=== PATIENT | female | born 1985 | race Caucasian/White ===

== ENCOUNTER 2016-08-07 09:30 | Inpatient (IN) | payer MEDICAID ==
[~2016-08-07] VITALS: Ht 152.4 cm; Wt 79.4 kg
[2016-08-07] VITALS (13 sets, daily range): BP systolic 108–127; BP diastolic 75–89; PULSE 76–98; RESP 16–18; TEMP 96.8–98.2; O2SAT 97–98
[~2016-08-07 09:30] MED LIST: PREN0.01 PO; SYNT88TA PO; TAB-TAB PO
[2016-08-07 10:23] LABS: AUTOMATED NEUTROPHIL # 5.6 TH/MM3 (1.8-7.7); BASOPHIL % 0.5 % (0.0-2.0); EOSINOPHIL % 0.5 % (0.0-4.0); HEMO FLAGS DIFF FINAL; LYMPH % 21.3 % (9.0-44.0); LYMPHOCYTE # 1.7 TH/MM3 (1.0-4.8); MEAN CELL VOLUME 87.9 FL (80.0-100.0); MEAN CORPUSCULAR HEMOGLOBIN 29.4 PG (27.0-34.0); MEAN CORPUSCULAR HGB CONC 33.5 % (32.0-36.0); MONO % 6.4 % (0.0-8.0); NEUT % 71.3 % (16.0-70.0); PLATELET COUNT 197 TH/MM3 (150-450); RED BLOOD COUNT 4.09 MIL/MM3 (4.00-5.30); RED CELL DISTRIBUTION WIDTH 15.1 % (11.6-17.2); WHITE BLOOD COUNT 7.8 TH/MM3 (4.0-11.0)
[2016-08-07] MEDS: LACTATED RINGER'S 1000 ML INJ 1,000 ML IV SCH ×3 (10:30→13:10)
[2016-08-07 10:37] LABS: BACTERIA, URINE OCC /hpf; BLOOD, URINE NEG (NEG); COMMENT (UR) CULT NOT INDICATED; CULTURE IF INDICATED CULT NOT INDICATED; GLUCOSE,URINE NEG (NEG); KETONE, URINE NEG (NEG); MUCUS URINE FEW /lpf (OCC); NITRITE,URINE NEG (NEG); PH, URINE 6.5 (5.0-8.5); SQUAMOUS EPITHELIAL CELL URINE 2 /hpf (0-5); URINE COLOR YELLOW (YELLW/STRAW)
[2016-08-07] MEDS ORDERED: OXYTOCIN 10 UNIT/ML AMP ONE (11:32)
[2016-08-07] MEDS ORDERED: CLINDAMYCIN 600 MG/NS 100 ML IV SCH ×2 (11:45)
[2016-08-07] MEDS ORDERED: LACTATED RINGER'S 1000 ML IV SCH (11:45)
[2016-08-07] MEDS ORDERED: LACTATED RINGER'S 1000 ML IV ONE (11:45)
[2016-08-07] MEDS ORDERED: CITRIC ACID-SODIUM CITRATE LIQ 30 ML UDC PO SCH (11:45)
[2016-08-07] MEDS ORDERED: ONDANSETRON HCL 4 MG/2 ML VIAL ONE (13:54)
[2016-08-07] MEDS ORDERED: MORPHINE SULFATE PF 5 MG/10 ML VIAL ONE (13:54)
[2016-08-07] MEDS ORDERED: SODIUM CHLORIDE 0.9% FLUSH 5 ML FLUSH IV PRN (14:00)
[2016-08-07] MEDS ORDERED: ZOLPIDEM TARTRATE 5 MG TAB PO PRN (14:00)
[2016-08-07] MEDS ORDERED: ONDANSETRON HCL 4 MG/2 ML VIAL IV PUSH PRN (14:00)
[2016-08-07] MEDS ORDERED: OXYTOCIN 30 UNITS-500ML PREMIX 500 ML IV ONE ×2 (14:00)
[2016-08-07] MEDS ORDERED: OXYTOCIN 30 UNITS-500ML PREMIX 500 ML ONE (14:42)
[2016-08-07] MEDS: CLINDAMYCIN INJ 600 MG in SODIUM CHLORIDE 0.9% INJ 100 ML IV SCH (18:29)
[2016-08-07] MEDS ORDERED: SODIUM CHLORIDE 0.9% FLUSH 5 ML FLUSH IV SCH (21:00)
[2016-08-07] MEDS: oxyCODONE/ACETAMINOPHEN 5 MG/325 MG TAB PO PRN (21:01)
[2016-08-07] MEDS: IBUPROFEN 600 MG TAB PO PRN (21:01)
[2016-08-08] MEDS ORDERED: OXYTOCIN 30 UNITS-500ML PREMIX 500 ML IV PRN
[2016-08-08 01:00] VITALS: BP 98/65; PULSE 84; RESP 18; TEMP 98.1
[2016-08-08] MEDS: CLINDAMYCIN INJ 600 MG in SODIUM CHLORIDE 0.9% INJ 100 ML IV SCH (01:13)
[2016-08-08] MEDS: oxyCODONE/ACETAMINOPHEN 5 MG/325 MG TAB PO PRN ×4 (01:13→20:02)
[2016-08-08] MEDS: LACTATED RINGER'S 1000 ML INJ 1,000 ML IV SCH (01:14)
[2016-08-08 05:50] VITALS: BP 109/64; PULSE 82; RESP 18; TEMP 98
[2016-08-08 06:21] LABS: AUTOMATED NEUTROPHIL # 7.3 TH/MM3 (1.8-7.7); BASOPHIL % 0.1 % (0.0-2.0); EOSINOPHIL # 0.1 TH/MM3 (0-0.4); EOSINOPHIL % 0.5 % (0.0-4.0); HEMATOCRIT 29.4 % (35.0-46.0); HEMO FLAGS DIFF FINAL; LYMPH % 15.1 % (9.0-44.0); LYMPHOCYTE # 1.4 TH/MM3 (1.0-4.8); MEAN CELL VOLUME 88.6 FL (80.0-100.0); MEAN CORPUSCULAR HEMOGLOBIN 29.6 PG (27.0-34.0); MEAN CORPUSCULAR HGB CONC 33.4 % (32.0-36.0); MONO % 5.5 % (0.0-8.0); NEUT % 78.8 % (16.0-70.0); PLATELET COUNT 152 TH/MM3 (150-450); RED BLOOD COUNT 3.31 MIL/MM3 (4.00-5.30); RED CELL DISTRIBUTION WIDTH 15.3 % (11.6-17.2); WHITE BLOOD COUNT 9.2 TH/MM3 (4.0-11.0)
[2016-08-08] MEDS: LEVOTHYROXINE SODIUM 88 MCG TAB PO SCH (06:23)
[2016-08-08 08:13] VITALS: BP 101/72; PULSE 76; RESP 16; TEMP 98.5
--- NOTE | 2016-08-08 08:21 | HHI.OB ---
Subjective Post Operative Day: 1 Remarks Doing well, tolerating diet and pain is fairly well controlled. Waiting on her meds. Baby is doing well. Objective Vitals/I&O Vital Signs Date Time Temp Pulse Resp B/P Pulse Ox O2 Delivery O2 Flow Rate FiO2 08/08/16 05:50 98.0 08/08/16 05:50 82 18 109/64 08/08/16 01:00 84 18 98/65 08/08/16 01:00 98.1 08/07/16 20:45 93 127/89 08/07/16 20:45 98.0 08/07/16 18:14 18 08/07/16 17:14 17 08/07/16 16:30 98.2 95 18 08/07/16 16:30 126/87 08/07/16 15:00 97.5 08/07/16 15:00 83 16 125/87 98 08/07/16 14:45 76 16 124/82 97 08/07/16 14:36 79 16 98 08/07/16 14:36 110/79 08/07/16 14:19 97.4 08/07/16 14:15 93 16 120/75 98 08/07/16 14:10 98 16 108/88 98 08/07/16 13:55 96.8 08/07/16 13:55 85 16 114/76 97 08/07/16 11:35 98.2 08/07/16 10:00 82 119/89 Result Diagram: 08/08/16 0556 Objective Remarks GENERAL: Well-nourished, well-developed patient. CARDIOVASCULAR: Regular rate and rhythm without murmurs, gallops, or rubs. RESPIRATORY: Breath sounds equal bilaterally. No accessory muscle use. ABDOMEN/GI: Abdomen soft, non-tender, bowel sounds present. Incision: Clean, dry and intact. Fundus: Firm, non-tender at umbilicus. GENITOURINARY: Light to moderate bleeding. EXTREMITIES: No cyanosis or edema, non-tender, without signs of DVT. Medications and IVs Current Medications Medications (Trade) Dose Ordered Sig/Ofelia Route Start Time Stop Time Status Last Admin (Lr 1000 ml Inj) 1,000 ml @ 100 mls/hr Q10H IV 08/07/16 18:53 08/08/16 14:52 08/08/16 01:14 (NS Flush) 2 ml BID IV 08/07/16 21:00 (NS Flush) 2 ml UNSCH PRN IV 08/07/16 14:00 (Mylicon Chew) 80 mg QID PRN PO 08/07/16 14:00 (Motrin) 600 mg Q6H PRN PO 08/07/16 14:00 08/07/16 21:01 (Percocet 5-325 Mg) 1 tab Q4H PRN PO 08/07/16 14:00 08/08/16 01:13 (Percocet 5-325 Mg) 2 tab Q4H PRN PO 08/07/16 14:00 (Rosalinda-Colace) 2 tab Q12H PRN PO 08/07/16 14:00 (Ambien) 5 mg HS PRN PO 08/07/16 14:00 (M-M-R Ii Inj) 0.5 ml ONCE ONCE SQ 08/08/16 16:00 08/08/16 16:01 (Boostrix Inj) 0.5 ml ONCE ONCE IM 08/08/16 16:00 08/08/16 16:01 (Zofran Inj) 4 mg Q6H PRN IV PUSH 08/07/16 14:00 (Synthroid) 88 mcg DAILY@06 PO 08/08/16 06:00 08/08/16 06:23 (Stuartnatal Plus 3 ) 1 tab DAILY PO 08/08/16 09:00 Assessment/Plan Assessment and Plan POD #1 Doing well Anemia will start Fe once the pt is off the percocet Hypothryriodism continue her meds. Routine care Discharge Planning D/C home on pod #2 or #3 Kenrick Arreola MD Aug 08, 2016 08:21
--- NOTE | 2016-08-08 08:30 | MH ---
cc: MAGDALENA VIDAL DATE OF ADMISSION: 08/07/2016 HISTORY OF PRESENT ILLNESS A 31-year-old white female, para 1-0-2-1, whose last menstrual period and early ultrasound put her at 39+ weeks. She has had a previous section and she desires a repeat. She understands the risks and benefits. Also her scar is crooked and wide and we are going to try to repair that as well. PAST OB HISTORY She is para 1-0-2-1. She has a family history of fragile X. Her fragile X was negative. 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 PAST MEDICAL HISTORY 1. Hypothyroidism. 2. Hemorrhoids. PAST SURGICAL HISTORY Previous section. SOCIAL HISTORY She does not smoke. She does not drink or take drugs. FAMILY HISTORY Remarkable for high cholesterol, Alzheimer's, high blood pressure, heart disease and fragile X. ALLERGIES PENICILLIN. MEDICATIONS 1. vitamins, one p.o. q. day. 2. Occasional Anusol suppositories p.r.n. hemorrhoids. REVIEW OF SYSTEMS No headaches. No scotoma. No shortness of breath. No chest pain. She reports active movement of the baby, no rupture of membranes or bleeding. PHYSICAL EXAMINATION GENERAL: A well-developed, well-nourished female in no acute distress. She is resting comfortably. VITAL SIGNS: Her temperature is 96.8, pulse 85, respirations 16, blood pressure 114/76. HEENT: Normocephalic, atraumatic. NECK: Supple. Trachea is in the midline. No thyromegaly or adenopathy. CHEST: Clear to auscultation. HEART: Regular rate and rhythm without murmur or gallop. ABDOMEN: Gravid, nontender. Fundal height seems appropriate. PELVIC: Exam was deferred. EXTREMITIES: No clubbing, cyanosis or edema. She does have a little bit of lower extremity edema. LABORATORY DATA Her laboratory workup reveals a white count of 7.8, hemoglobin 12, hematocrit 36, platelets 197. ASSESSMENT AND PLAN 1. Intrauterine at term. She desires repeat section and is being brought in for the same. We will also try to fix that thick ugly scar. 2. Hypothyroidism. Will continue her medications during her hospital stay. 3. Allergic to penicillin. Will use clindamycin for pre-op antibiotics. R. MD JEANETTE Cullen/NÉSTOR /8:11 AM /8:21 AM
[2016-08-08] MEDS: MULTIVIT/MIN/PREN/FOL AC/IRON PRENATAL TAB PO SCH (08:32)
[2016-08-08] MEDS: IBUPROFEN 600 MG TAB PO PRN ×3 (08:32→21:31)
[2016-08-08] MEDS ORDERED: PRENATAL VITAMINS PO SCH (09:00)
[2016-08-08] MEDS ORDERED: MULTIVIT/MIN/PREN/FOL AC/IRON PRENATAL TAB PO SCH (09:00)
[2016-08-08] MEDS ORDERED: IBUP-232 PO (13:30)
[2016-08-08] MEDS ORDERED: PERC5TAB12 PO (13:30)
--- NOTE | 2016-08-08 13:33 | HHI.DCPOC ---
Discharge Care Plan Diagnosis: (1) Anemia (2) Liveborn by Report Symptoms to Your Doctor -Temperate above 100.5 degrees -Redness, of incision or excessive or foul smelling drainage -Unusual pain or calf pain -Increased vaginal bleeding -Painful or difficulty urinating -Feelings of extreme sadness or anxiety after 2 weeks Goals to Promote Your Health * To prevent worsening of your condition and complications * To maintain your health at the optimal level Directions to Meet Your Goals Take your medications as prescribed Follow your dietary instruction Follow activity as directed Ensure plenty of rest for recovery Drink fluids for hydration Keep your appointments as scheduled Take your immunizations and boosters as scheduled If your symptoms worsen call your PCP, if no PCP go to Urgent Care Center or Emergency Room Smoking is Dangerous to Your Health. Avoid second hand smoke Call the 24-hour crisis hotline for domestic abuse at Kenrick Arreola MD Aug 08, 2016 13:33
[2016-08-08] MEDS: DOCUSATE SODIUM 50 MG/SENNA 8.6 MG TAB PO PRN (13:40)
[2016-08-08] MEDS ORDERED: HYDROmorphone HCL PF 1 MG/ML VIAL IM PRN (14:00)
[2016-08-08] MEDS ORDERED: MEASLES, MUMPS, RUBELLA VACCINE 0.5 ML VIAL SQ ONE (16:00)
[2016-08-08] MEDS ORDERED: DIPHTH/TETANUS/ACEL PERTUSSIS (BOOSTER) 0.5 ML VIAL/PFS IM ONE (16:00)
[2016-08-08 19:56] VITALS: BP 126/82; PULSE 18; PULSE 97; RESP 18; TEMP 97.9
[2016-08-08] MEDS: SIMETHICONE 80 MG CHEWABLE TAB PO PRN (20:02)
[2016-08-09] MEDS: oxyCODONE/ACETAMINOPHEN 5 MG/325 MG TAB PO PRN ×3 (02:11→10:55)
[2016-08-09] MEDS: LEVOTHYROXINE SODIUM 88 MCG TAB PO SCH (06:56)
[2016-08-09] MEDS: IBUPROFEN 600 MG TAB PO PRN (06:59)
[2016-08-09 08:00] VITALS: BP 116/80; PULSE 73; RESP 16; TEMP 98
[2016-08-09] MEDS: DOCUSATE SODIUM 50 MG/SENNA 8.6 MG TAB PO PRN (10:52)
[2016-08-09] MEDS: MULTIVIT/MIN/PREN/FOL AC/IRON PRENATAL TAB PO SCH (10:52)
[2016-08-09] MEDS: SIMETHICONE 80 MG CHEWABLE TAB PO PRN (10:55)
--- NOTE | 2016-08-09 11:13 | HHI.DS ---
Admission Date Aug 07, 2016 at 09:30 Discharge Date: Aug 09, 2016 Admitting Diagnosis 39 WEEK PREVIOUS C SECTION Diagnosis: (1) Anemia Diagnosis: Secondary (2) Liveborn by Diagnosis: Principal : Repeat Infant: Female Brief History TERM PREVIOUS C SECTION REPEAT SECTION Hospital Course REPEAT C SECTION ROUTINE CARE Pt Condition on Discharge: Good Discharge Disposition: Discharge Home Discharge Instructions Diet Instructions: As Tolerated, No Restrictions Additional Diet Instructions: Drink at least 8 - 16 oz bottles of water a day Activities You Can Perform: Shower Only-No Bath Activities to Avoid: Prolonged Standing, Strenuous Activity, Sexual Activity Additional Activity Instruc.: No driving until off pain medications Do not lift anything heavier than your baby in an infant carrier Follow up Referrals: [facility] - 1 Week @ [facility] [place] New Medications: Oxycodone-Acetaminophen (Percocet) 5-325 mg Tab 1-2 TAB PO Q4H moderate pain #30 Ref 0 TAB Ibuprofen (Ibuprofen) 600 Mg Tab 600 MG PO Q6H Pain Management #30 Ref 1 TAB Continued Medications: () 1 TAB PO DAILY TAB Synthroid 88 mcg (Synthroid 88 mcg) 88 Mcg Tab 88 MCG PO DAILY TAB Discontinued Medications: Multiple Vitamin (Multivitamin) 1 Tab Tab 1 TAB PO DAILY TAB Karen Isaacs Aug 09, 2016 11:13
--- NOTE | 2016-08-09 11:14 | HHI.OB ---
Subjective Post Operative Day: 2 Objective Vitals/I&O Vital Signs Date Time Temp Pulse Resp B/P Pulse Ox O2 Delivery O2 Flow Rate FiO2 08/09/16 08:00 98.0 73 16 116/80 08/08/16 19:56 97 08/08/16 19:56 97.9 18 18 08/08/16 19:56 126/82 08/08/16 19:56 126/82 Result Diagram: 08/08/16 0556 Objective Remarks GENERAL: Well-nourished, well-developed patient. CARDIOVASCULAR: Regular rate and rhythm without murmurs, gallops, or rubs. RESPIRATORY: Breath sounds equal bilaterally. No accessory muscle use. ABDOMEN/GI: Abdomen soft, non-tender, bowel sounds present. Incision: Clean, dry and intact, STERI STRIPS INTACT Fundus: Firm, non-tender at umbilicus. GENITOURINARY: Light to moderate bleeding. EXTREMITIES: No cyanosis or edema, non-tender, without signs of DVT. Medications and IVs Current Medications Medications (Trade) Dose Ordered Sig/Ofelia Route Start Time Stop Time Status Last Admin (NS Flush) 2 ml BID IV 08/07/16 21:00 (NS Flush) 2 ml UNSCH PRN IV 08/07/16 14:00 (Mylicon Chew) 80 mg QID PRN PO 08/07/16 14:00 08/09/16 10:55 (Motrin) 600 mg Q6H PRN PO 08/07/16 14:00 08/09/16 06:59 (Percocet 5-325 Mg) 1 tab Q4H PRN PO 08/07/16 14:00 08/08/16 15:13 (Percocet 5-325 Mg) 2 tab Q4H PRN PO 08/07/16 14:00 08/09/16 10:55 (Rosalinda-Colace) 2 tab Q12H PRN PO 08/07/16 14:00 08/09/16 10:52 (Ambien) 5 mg HS PRN PO 08/07/16 14:00 (Zofran Inj) 4 mg Q6H PRN IV PUSH 08/07/16 14:00 (Synthroid) 88 mcg DAILY@06 PO 08/08/16 06:00 08/09/16 06:56 (Stuartnatal Plus 3 ) 1 tab DAILY PO 2/14/17 09:00 08/09/16 10:52 (Dilaudid Pf Inj) 1 mg Q2H PRN IM 08/08/16 14:00 08/08/16 14:17 Assessment/Plan Assessment and Plan POD #2 Doing well Anemia will start Fe once the pt is off the percocet Hypothryriodism continue her meds. Routine care Discharge Planning D/C home TODAY Karen Isaacs Aug 09, 2016 11:14
--- NOTE | 2016-08-09 15:18 | MP ---
cc: Kenrick ARREOLA MD DATE OF SURGERY: 08/07/2016 PREOPERATIVE DIAGNOSIS 1. Intrauterine at 39+ weeks. 2. Previous section, desires repeat. 3. Thick keloid scar. POSTOPERATIVE DIAGNOSIS 1. Intrauterine at 39+ weeks. 2. Previous section, desires repeat. 3. Thick keloid scar. PROCEDURE Repeat low transverse section. ANESTHESIA Spinal. SURGEON Kenrick Arreola MD FINDINGS A normal female with good Apgars. The uterus, tubes and ovaries were normal. Cul-de-sacs were normal. COMPLICATIONS None. COUNTS Counts correct. ESTIMATED BLOOD LOSS 600 ccs. FLUIDS Crystalloids. CONDITION The patient tolerated the procedure well and went to the recovery room in good condition. PROCEDURE IN DETAIL Repeat low transverse section. PROCEDURE The patient was taken to the operating room identified by name band and verbally. She was given a spinal anesthetic. A Arias catheter was inserted. She was prepped and draped for section. The old Pfannenstiel incision was removed and excised completely and the incision was taken down to the fascia. The fascia was taken off the rectus muscle by blunt and sharp dissection. The peritoneum was entered under direct vision without complication. The incision was extended with care to avoid the urinary bladder. A bladder blade was placed and a bladder flap created over the lower uterine segment which was well-developed. The uterus was then scored in a transverse manner along the lower uterine segment and taken down in the midline until the uterine cavity was entered. The incision was extended with the surgeon's fingers. The vertex was grasped and delivered through the incision without difficulty. The hypopharynx and nasopharynx were suctioned. The remainder of the infant was delivered. The cord was doubly clamped and cut and the handed to the resuscitation team that was present. Cord blood was obtained. The placenta was delivered manually without difficulty. The uterus was curettaged twice with a wet lap. The uterine incision was repaired with 2-0 Vicryl a running locking fashion, the second layer imbricating the first. The cul-de-sac and gutters were cleaned of blood and debris with a large amount of irrigation. The uterus was delivered back into the abdomen. The incision was again inspected and was hemostatic. The rectus muscles were reapproximated with 0 Vicryl in an interrupted fashion. The fascia was repaired with 0 Vicryl from lateral to midline bilaterally in a running fashion. The subcutaneous tissue was repaired with 3-0 Vicryl. The skin was repaired with 4-0 Monocryl in a subcuticular manner. Steri-Strips were applied. The wound was sterilely dressed. She tolerated the procedure well and went to the recovery room in good condition. R. MD JEANETTE Cullen/CASI /8:15 AM /3:05 PM
== END 2016-08-09 14:13 | disposition home or self-care (01) | DRG 766 ==
LOC: H2EB 09:30 → H1EA 15:27
PROVIDERS: ADMIT Obstetrics & Gynecology; ATTEND Obstetrics & Gynecology
PROC: 10D00Z1 Extraction of Products of Conception, Low, Open Approach (ICD-10-PCS; principal; 2016-08-07)
DX: O34.211 Maternal care for low transverse scar from previous cesarean delivery (principal); E03.9 Hypothyroidism, unspecified; O99.02 Anemia complicating childbirth; O99.284 Endocrine, nutritional and metabolic diseases complicating childbirth; Z37.0 Single live birth; Z3A.39 39 weeks gestation of pregnancy; L91.0 Hypertrophic scar; D64.9 Anemia, unspecified
CPT/HCPCS: 59025; 81001; 85025; 86850; 86900; 86901; J1170; J2274; J2405; J2590; J7120